=== PATIENT | male | born 1990 | race Caucasian/White ===

== ENCOUNTER 2019-06-15 22:34 | Emergency (ER) | payer OTHER, SELFPAY ==
[2019-06-15 22:37] VITALS: BP 148/91; PULSE 90; RESP 16; TEMP 36.4; O2SAT 100
--- NOTE | 2019-06-15 22:54 | ED.GENADULT ---
HPI - General Adult General Chief complaint: Unspecified Stated complaint: I have yellow in my eyes Time Seen by Provider: 06/15/19 22:40 Source: patient and family Mode of arrival: ambulatory Limitations: no limitations History of Present Illness HPI narrative: Patient is a 28-year-old male who presents for evaluation of yellowing in his eyes. Patient reports a 2-day history of worsening yellow in the whites of his eyes. Patient reports some mild left upper quadrant abdominal pain without nausea, vomiting. No fever or chills. Patient socially drinks alcohol states at times he can have up to a sixpack of beer, last ingested alcohol 2 days ago. No vomiting today. Very minimal, mild aching left abdominal pain that the patient states he does not notice much. No foamy urine, or discoloration in the urine. No history of hepatitis. No recent travel. No history of autoimmune diseases in the family. Patient otherwise has no known medical conditions. Pt PCP is Dr. Yanci Katz MD at [place], [place]. Related Data Allergies Allergy/AdvReac Type Severity Reaction Status Date / Time No Known Allergies Allergy Verified 06/15/19 22:43 Review of Systems Review of Systems: Narrative: CONSTITUTIONAL: Denies fever, chills, or sweats. EYES: Denies visual changes, redness, or discharge. ENT: Denies rhinorrhea, congestion, sore throat, or otalgia. CARDIOVASCULAR: Denies chest pain, palpitations, or edema. RESPIRATORY: Denies cough or dyspnea. GASTROINTESTINAL: Mild left-sided abdominal pain, denies nausea, vomiting or diarrhea. GENITOURINARY: Denies dysuria or hematuria. SKIN: Denies rash or itching. MUSCULOSKELETAL: Denies back pain, joint pain, or myalgia. NEUROLOGIC: Denies headache, numbness, or weakness. [facility] Past Medical History Medical History (Updated 06/16/19 @ 00:21 by Jocelyn Dawson MD) No pertinent past medical history Surgical History Surgical History (Updated 06/15/19 @ 23:04 by Jocelyn Dawson MD) No pertinent past surgical history Family History Family History (Updated 06/15/19 @ 23:05 by Jocelyn Dawson MD) Grandparent Cirrhosis Social History Social History (Updated 06/15/19 @ 23:04 by Jocelyn Dawson MD) Smoking status: Never smoker Alcohol intake: current Drinks per week: 6 Substance use: never Living arrangements: with family Gender identity (if verbalized by the patient): Male Exam Narrative: Exam Narrative: GENERAL: Awake, alert, conversant HEAD: Normocephalic, atraumatic. EYES: PERRLA and EOMI. scleral icterus, inferior portion bilateral eyes. ENT: Nares clear, no rhinorrhea or epistaxis. Mucous membranes moist. NECK: Supple. CHEST: No respiratory distress, breathing even and non labored HEART: Regular rate, sinus rhythm ABDOMEN:Non distended, no left upper quadrant tenderness, no rebound, no guarding, nonrigid, no hepatomegaly EXTREMITIES: Normal range of motion. No edema. SKIN: Warm, dry, no rash. No jaundice of the skin. NEURO:No focal deficits. Alert and oriented x3 Course Course Emergency Course: Patient presented for evaluation of yellowing of the bilateral lower portions of the sclera. At the time of initial assessment, there is no appreciable jaundice, but when asked the patient to look up, there is bilateral inferior scleral icterus present. No jaundice of the skin or the tongue. Patient without history of travel, no right upper quadrant pain, no rashes. Patient does ingest alcohol although it does appear to be mostly social, at times there is some binge drinking activity per patient. Laboratory results are relatively reassuring. No anemia. No hyperbilirubinemia. No thrombocytopenia. Mild elevation in ALT. Patient without any severe abdominal pain, hepatitis panel is negative. I doubt hereditary hyperbilirubinemia as patient does not have any lab markers consistent with this. At this point, patient does not appear to have obstruct
[2019-06-15 23:18] LABS: Basophils Absolute Auto 0.1 K/mm3 (0.0-0.1); Basophils Percent Auto 1.1 % (0.2-1.2); Eosinophils Absolute Auto 0.3 K/mm3 (0-0.3); Eosinophils Percent Auto 3.9 % (0-4.4); Hematocrit 44.4 % (42.0-52.0); Hemoglobin 15.5 g/dL (14.0-18.0); Immature Granulocyte Absolute 0.07 K/mm3 (0.00-0.031); Immature Granulocyte Percent A 0.9 % (0-0.5); Lymphocytes Absolute Auto 3.21 K/mm3 (0.9-3.2); Lymphocytes Percent Auto 39.1 % (18.3-44.2); Mean Corpuscular HGB Conc 34.9 g/dl (32-36); Mean Corpuscular Hemoglobin 29.9 pg (26-34); Mean Corpuscular Volume 85.5 fl (80-100); Mean Platelet Volume 9.6 fl (7.4-10.4); Monocytes Absolute Auto 0.6 K/mm3 (0.1-0.6); Monocytes Percent Auto 6.7 % (2.6-8.5); Neutrophils Percent Auto 48.3 % (45.5-73.1); Platelet Count Result 262 k/mm3 (150-375); Red Blood Count 5.19 M/mm3 (4.6-6.20); Red Cell Distribution Width 12.8 % (11.5-14.5); White Blood Count 8.2 K/mm3 (4.5-10.0)
[2019-06-15 23:28] LABS: Partial Thromboplastin Time 25.8 SECONDS (22.3-36.8); Prothrombin Time 12.5 Seconds (11.1-14.7)
[2019-06-15 23:30] LABS: Alanine Aminotransferase 60 U/L (4-50); Albumin Level 4.7 g/dL (3.5-5.1); Alkaline Phosphatase 62 U/L (38-126); Aspartate Amino Transferase 43 U/L (17-59); Bilirubin Indirect 0.4 mg/dL (0-1.1); Bilirubin,Total 0.3 mg/dL (0.2-1.3); Blood Urea Nitrogen 11 mg/dL (9-20); Calcium 9.1 mg/dL (8.4-10.2); Carbon Dioxide 28 mmol/L (22-30); Chloride 101 mmol/L (98-107); Estimated Glomerular Filt Rate > 60; Glucose 98 mg/dL (75-110); Potassium 4.1 mmol/L (3.4-5.0); Sodium 136 mmol/L (137-145)
[2019-06-15 23:45] LABS: Add Urine Microscopic? NO; Appearance Urine Clear (Clear); Bilirubin Urine Negative (Negative); Blood Urine Negative (Negative); Color Urine Straw (Yellow); Glucose Urine UA Negative (Negative); Ketones Urine Negative (Negative); Leukocyte Esterase Ur Negative LEU/UL (Negative); Nitrate Urine Negative (Negative); Protein Urine Negative (Negative); Specific Grav Ur 1.006 (1.001-1.035); Urobilinogen Urine Negative mg/dL (<2.0)
[2019-06-16 00:29] VITALS: BP 118/74; PULSE 81; RESP 19; O2SAT 100
[2019-06-16 00:53] LABS: Hepatitis B Surface Antigen Negative (Negative)
[2019-06-16 00:59] LABS: HAV RESULT Negative (Negative); Hepatitis B Core IgM Result Negative (Negative)
[2019-06-16 01:10] LABS: Hepatitis C Virus Antibody Negative (Negative)
[2019-06-16 01:25] VITALS: BP 127/78; PULSE 79; RESP 19; TEMP 36.6; O2SAT 100
== END 2019-06-16 01:27 | disposition home or self-care (01) ==
PROVIDERS: Emergency Provider Emergency Medicine
DX: R17 Unspecified jaundice (principal)
CPT/HCPCS: 36415; 80053; 80074; 81003; 82248; 85025; 85610; 85730; 99283

== ENCOUNTER 2019-06-19 02:41 | Emergency (ER) | payer OTHER, SELFPAY ==
--- NOTE | ~2019-06-19 | CT_ITS ---
EXAMINATION: CT abdomen pelvis w con DATE: 06/19/2019 03:50 INDICATION: Left lower quadrant abdominal pain TECHNIQUE: Computed tomography (CT) of the abdomen and pelvis was performed with 100 cc Omnipaque 350 intravenous contrast. Automated exposure control and iterative reconstruction technique were employe d. Exam dose: 544.45 mGy-cm total exam DLP. COMPARISON: None. FINDINGS: The lung bases are clear. Normal heart size. No pericardial or pleural effusion. The liver, gallbladder, bile ducts, spleen, pancreas and pancreatic duct, adrenal glands and kidneys are unremarkable, without evidence of space-occupying mass lesion. No bile duct or pancreatic duct di latation. No urinary tract calculus or hydroureteronephrosis. Normal caliber of the abdominal aorta. No intraperitoneal or retroperitoneal or pelvic mass lesion or adenopathy or ascites. Normal appendix. No bowel obstruction or intraperitoneal free air. Included skeletal structures are unremarkable. IMPRESSION: No significant abnormality Reviewed, dictated and finalized at [facility] Reviewed, dictated and finalized at [facility] IMPRESSION: No significant abnormality
[2019-06-19 02:44] VITALS: BP 154/79; PULSE 93; RESP 20; TEMP 36.9; O2SAT 99
[2019-06-19 02:51] VITALS: BP 154/79; PULSE 93; RESP 18; TEMP 36.9; O2SAT 99
--- NOTE | 2019-06-19 03:08 | ED.ABDPAIN ---
HPI - Abdominal Pain General Chief Complaint: Abdominal Pain Stated Complaint: LLQ abd pain Time Seen by Provider: 06/19/19 02:51 Source: patient and old records reviewed Mode of arrival: ambulatory Limitations: no limitations History of Present Illness HPI narrative: Patient is a 28-year-old male who presents to the emergency department with complaint of left lower quadrant abdominal pain. Patient states he ate barbecue and drink significant amount of beer a few days ago and the next morning he awoke with abdominal bloating. Patient noticed yellow discoloration of his eyes and was worried about his liver and came to the emergency department for evaluation. Patient was seen here in this emergency department 4 days ago at which time he had a full panel of labs done which were unremarkable aside from minimal elevation in his ALT. Patient reports ongoing feeling of fullness as well as development of heartburn and persistent left lower quadrant pain. He describes it as a burning sensation. MD elicited complaint: abdominal pain Pertinent past history: none Onset (ago): day(s) Location: LLQ Quality: burning Related Data Allergies Allergy/AdvReac Type Severity Reaction Status Date / Time No Known Allergies Allergy Verified 06/19/19 02:55 Review of Systems Review of Systems: All systems reviewed & are unremarkable except as noted in HPI and below Constitutional: Constitutional: Denies chills and Denies fever(s) Gastrointestinal: Gastrointestinal: Reports abdominal pain, Reports bloating, Denies constipation, Reports heartburn, Denies diarrhea, Denies nausea and Denies vomiting Genitourinary: Genitourinary: Denies hematuria, Denies dysuria, Denies testicular pain and Denies urinary frequency Musculoskeletal: Musculoskeletal: Reports back pain (Occasional left CVA) [facility] Past Medical History Medical History (Updated 06/19/19 @ 04:55 by Cristin Arreola MD) No significant past medical history Surgical History Surgical History (Updated 06/19/19 @ 03:13 by Cristin Arreola MD) History of hernia repair Family History Family History (Updated 06/15/19 @ 23:05 by Jocelyn Dawson MD) Grandparent Cirrhosis Social History Social History (Updated 06/19/19 @ 03:13 by Cristin Arreola MD) Alcohol intake: current Alcohol use details: Occasional six-pack of beer, infrequent Substance use type: marijuana Gender identity (if verbalized by the patient): Male Exam Const: General: cooperative, no acute distress and alert Nutritional Appearance: well nourished Orientation/consciousness: patient oriented x3 Limitations: no limitations HENMT: Mouth: Yes lip normal and Yes moist mucous membranes Resp: Effort & Inspection: normal respiratory effort Auscultation: clear to auscultation bilaterally Cardio: Rate: regular rate Rhythm: regular rhythm GI: GI Palp: Yes Soft to palpation, Yes Tenderness to palpation present (GI) (Minimal left flank/left lower quad), No Guarding due to palpation present (GI) and No Rebound tenderness present Auscultation: normal bowel sounds : General: Yes CVA tenderness on the left (Mild) Skin: General skin exam: normal color and no rashes or lesions noted Neuro: General: patient oriented x3 Cognition (Neuro): normal cognition Speech: normal speech Extrem: General: normal to inspection, full ROM and no clubbing, cyanosis or edema Psych: Mental Status: mental status grossly normal Affect: normal affect Attitude: cooperative Course Course Emergency Course: Testing in the emergency department unremarkable. Will prescribe famotidine for patient's feeling of fullness and heartburn to see if this helps. Advised importance of primary care follow-up for further evaluation. Vital Signs Vital signs: Vital Signs Temperature 98.5 F 06/19/19 02:44 Pulse Rate 93 06/19/19 02:44 Respiratory Rate 20 06/19/19 02:44 Blood Pressure 154/79 H 06/19/19 02:44 Pulse Oxim
[2019-06-19 03:19] LABS: Basophils Absolute Auto 0.1 K/mm3 (0.0-0.1); Basophils Percent Auto 1.1 % (0.2-1.2); Eosinophils Absolute Auto 0.2 K/mm3 (0-0.3); Eosinophils Percent Auto 2.4 % (0-4.4); Hematocrit 43.4 % (42.0-52.0); Hemoglobin 15.6 g/dL (14.0-18.0); Immature Granulocyte Absolute 0.06 K/mm3 (0.00-0.031); Immature Granulocyte Percent A 0.7 % (0-0.5); Lymphocytes Absolute Auto 3.46 K/mm3 (0.9-3.2); Lymphocytes Percent Auto 38.2 % (18.3-44.2); Mean Corpuscular HGB Conc 35.9 g/dl (32-36); Mean Corpuscular Hemoglobin 30.2 pg (26-34); Mean Corpuscular Volume 84.1 fl (80-100); Mean Platelet Volume 9.5 fl (7.4-10.4); Monocytes Absolute Auto 0.6 K/mm3 (0.1-0.6); Monocytes Percent Auto 6.4 % (2.6-8.5); Neutrophils Absolute Auto 4.6 K/mm3 (1.3-6.7); Neutrophils Percent Auto 51.2 % (45.5-73.1); Platelet Count Result 264 k/mm3 (150-375); Red Blood Count 5.16 M/mm3 (4.6-6.20); Red Cell Distribution Width 12.8 % (11.5-14.5); White Blood Count 9.1 K/mm3 (4.5-10.0)
[2019-06-19 03:33] LABS: Alanine Aminotransferase 64 U/L (4-50); Alkaline Phosphatase 72 U/L (38-126); Aspartate Amino Transferase 45 U/L (17-59); Bilirubin,Total 0.4 mg/dL (0.2-1.3); Blood Urea Nitrogen 9 mg/dL (9-20); Calcium 9.1 mg/dL (8.4-10.2); Carbon Dioxide 25 mmol/L (22-30); Chloride 101 mmol/L (98-107); Estimated CRCL calculation 110 ml/min; Estimated Glomerular Filt Rate > 60; Glucose 102 mg/dL (75-110); Lipase 91 U/L (23-300); Potassium 4.1 mmol/L (3.4-5.0); Sodium 138 mmol/L (137-145)
[2019-06-19 05:11] VITALS: BP 148/66; PULSE 88; RESP 16; O2SAT 99
== END 2019-06-19 05:05 | disposition home or self-care (01) ==
PROVIDERS: Emergency Provider Emergency Medicine; PCP Internal Medicine
DX: R10.32 Left lower quadrant pain (principal)
CPT/HCPCS: 36415; 74177; 80053; 83690; 85025; 99284; Q9967